=== PATIENT | male | born 1970 | race Caucasian/White ===

== ENCOUNTER 2016-03-03 18:29 | Emergency (ER) | payer OTHER ==
[2016-03-03 18:43] VITALS: BP 186/88
--- NOTE | 2016-03-03 18:58 | ERNOTE ---
Trauma/Assault HPI - Narrative Date of Service: 03/03/16 - General Stated Complaint: FALL Time Seen by Provider: 03/03/16 18:46 Source: patient, family Exam Limitations: no limitations - Immun/Allergies/Home Medications Immunizations: IMMUNIZATION HX Immunizations Up to Date Yes History of Influenza Vaccine More Information Required Hx Pneumococcal Vaccination More Information Required Allergies/Adverse Reactions: Allergies No Known Allergies Allergy (Verified 03/03/16 18:44) Home Medications: HOME MEDICATIONS Lisinopril [Zestril] 15 mg PO DAILY 03/11/15 [Last Taken Unknown] Metformin HCl [Glumetza] 1,000 mg PO BID 03/11/15 [Last Taken Unknown] Simvastatin [Zocor] 40 mg PO HS 03/11/15 [Last Taken Unknown] glipiZIDE [Glucotrol] 5 mg PO DAILY 03/11/15 [Last Taken Unknown] Aspirin [Aspirin EC] 81 mg PO DAILY 10/23/15 [Last Taken Unknown] - History of Present Illness Narrative: 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 About 45 minutes before coming by private vehicle to the [facility] emergency room, he was going down into his basement in order to turn the water back on. He slipped on Saturday steps landing on his left forearm and left ribs. There was no loss of consciousness. He has an abrasion on his left forearm and very tender left ribs with a red spot on his left lateral back over his ribs. He has no other painful or tender areas. He had a tetanus shot 2 years ago. Location Occurred: Reports: home Pain Location: Reports: chest, upper extremity Method of Injury: Reports: fall Severity: mild, moderate Modifying Factors - (Improves): Reports: rest Modifying Factors - (Worsens): Reports: jarring, movement Loss of Consciousness: Reports: no loss of consciousness Associated Symptoms - Trauma: Reports: denies symptoms Review of Systems - Review of Systems Constitutional: Present: no symptoms reported EYE: Present: no symptoms reported ENT: Present: no symptoms reported Respiratory: Present: no symptoms reported Cardiology: Present: no symptoms reported Gastrointestinal/Abdominal: Present: no symptoms reported Genitourinary: Present: no symptoms reported Musculoskeletal: Present: See HPI Skin: Present: See HPI Neurological: Present: no symptoms reported Endocrine: Present: no symptoms reported Hematologic/Lymphatic: Present: no symptoms reported Psych: Present: no symptoms reported All Other Systems: All systems neg except as marked - Patient's Past Medical History Patient History - Medical: Diabetes Type 2, Obesity Patient History - Cardiac/Respiratory: Hypertension, Hyperlipidemia Patient History - Cancer: No Hx of Cancer Patient History - Surgical Procedures: Other - Family History dad Family History - Medical: - Social History Living Situations: home Alcohol Use: rarely Drug Use: none Physical Exam - Physical Exam General Appearance: Present: wd/wn, alert, no apparent distress Eye Exam: Normal inspection: bilateral, PERRL: bilateral, EOMI: bilateral Ears, Nose, Throat: Present: normal ENT inspection, hearing grossly normal Neck: Present: normal inspection Respiratory: Present: no respiratory distress, lungs clear, chest tenderness - left posterolateral and lateral ribs, about mid thoracic spine. Cardiovascular/Chest: Present: regular rate, rhythm, no murmur Gastrointestinal/Abdominal: Present: normal bowel sounds, nontender, nondistended, soft, no organomegaly Back Exam: Present: no vertebral tenderness Extremity Exam: Present: other - superficial abrasion left proximal forearm Neurological Exam: Present: alert, oriented, normal mood/affect, no motor/ sensory deficits Skin Exam: Present: normal color, warm/dry ED Progress - Vital Signs Patient's Vital Signs:: I have reviewed the patient's vital signs. Vital Signs: Vital Signs 03/03/16 18:39 Temperature 36.2 C L Pulse Rate 94 Respiratory 14 Rate Blood Pressure 186/88 O2 Sat by Pulse 94 Oximetry - X-Ray X-Ray #1 X-Ray: ribs Interpretation: Interp. by me - no rib fractures - Progress/Reassessment Chief Complaint: Fall Departure Clinical Impression: Bruised ribs Qualifiers: Encounter type: initial encounter Laterality: left Qualified Code(s): S20.212A - Contusion of left front wall of thorax, initial encounter Abrasion forearm Qualifiers: Encounter type: initial encounter Laterality: left Qualified Code(s): S50.812A - Abrasion of left forearm, initial encounter - Departure Disposition: Home self-care Condition: Good Instructions: Rib Contusion, Abrasion, [id number], RICE for Routine Care of Injuries, [id number] Additional Instructions: Change the dressing on your arm once daily or as needed. See your doctor sometime next week. Use ibuprofen or tylenol for pain. Referrals: Bryon Pineda MD [Primary Care Provider] -
== END 2016-03-03 19:45 | disposition home or self-care (01) ==
LOC: ER 18:29
DX: S50.812A Abrasion of left forearm, initial encounter (principal); S20.212A Contusion of left front wall of thorax, initial encounter; W10.9XXA Fall (on) (from) unspecified stairs and steps, initial encounter; Y92.008 Other place in unspecified non-institutional (private) residence as the place of occurrence of the external cause

== ENCOUNTER 2018-06-21 20:00 | Observation (INO) ==
--- NOTE | 2018-06-21 20:18 | ERNOTE ---
<Shama Cota - Last Filed: 06/21/18 21:09> Headache ER HPI - Narrative Date of Service: 06/21/18 - General Presenting Symptoms: headache, other - chest tightness Time Seen by Provider: 06/21/18 20:17 Source: patient, family Exam Limitations: no limitations - Immun/Allergies/Home Medications Immunizations: IMMUNIZATION HX Immunizations Up to Date Yes History of Influenza Vaccine More Information Required Hx Pneumococcal Vaccination More Information Required Allergies/Adverse Reactions: Allergies No Known Allergies Allergy (Verified 03/03/16 18:44) Home Medications: HOME MEDICATIONS Lisinopril [Zestril] 15 mg PO DAILY 03/11/15 [Last Taken Unknown] Simvastatin [Zocor] 80 mg PO HS 03/11/15 [Last Taken Unknown] glipiZIDE [Glucotrol] 10 mg PO BID 03/11/15 [Last Taken Unknown] metFORMIN HCL [Glumetza] 1,000 mg PO BID 03/11/15 [Last Taken Unknown] Aspirin [Aspirin EC] 81 mg PO DAILY 10/23/15 [Last Taken Unknown] - Pain Pain Score: 1 - History of Present Illness Narrative: 48 yr old male with HTN, Diabetes mellitus and hyperlipidemia presents not feeling well in general since yesterday. Reports dull frontal headache, presently rates it 1/10. At its worse, it was 4/10. Reports mild dizziness when up walking. Had vague chest tightness this morning rated it a 3/10. Denies any C/P presently. States the C/P is intermittent. 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 Denies any associated N/V or diaphoresis. Denies any new SOB. States, "I am a big chirag. I am short of breath all of the time." thinks this has been worse the past week. Quit smoking 20 yrs ago. Arterial risk factors: Age, Diabetes mellitus, HTN, Hyperlipidemia and family history. Patient's father of [place] at age 52. Also has sister who has brain aneurysm. Date (Duration): 06/21/18 Time (Timing): 20:18 Activity at onset: other - just sitting at home Quality: Present: achy Severity Maximum: Present: moderate Severity-Currently: Present: mild Associated Symptoms: Reports: dizziness. Denies: nausea, vomiting, sweating Review of Systems - Review of Systems Constitutional: Absent: recent illness, fever, diaphoresis EYE: Present: no symptoms reported ENT: Present: no symptoms reported Respiratory: Present: shortness of breath - Denies any new SOB. States always SOB. . Absent: cough Cardiology: Present: chest pain, edema. Absent: palpitations Gastrointestinal/Abdominal: Absent: nausea, vomiting Genitourinary: Present: no symptoms reported Musculoskeletal: Present: no symptoms reported Skin: Present: no symptoms reported Neurological: Present: headache, dizziness/light-headedness Endocrine: Present: no symptoms reported Hematologic/Lymphatic: Present: no symptoms reported Psych: Present: no symptoms reported Medical History (Updated 06/21/18 @ 20:11 by Herlinda Jaimes) Diabetes HTN (hypertension) Hyperlipemia Surgical History: Surgical History (Updated 06/21/18 @ 20:11 by Herlinda Jaimes) Hx of hernia repair Family History: Family History (Updated 06/21/18 @ 20:12 by Herlinda Jaimes) Grandmother Diabetes Father Lung cancer Social History: Preferred Language Sri Lankan Smoking Status Former smoker Abuse History No History of abuse Psych History No pertinent hx Alcohol Use occasionally Drug Use none No Social History Section defined Physical Exam - Physical Exam General Appearance: Present: wd/wn, alert, no apparent distress, irritable Head Exam: Present: normal inspection, no evidence of injury Eye Exam: Normal inspection: bilateral, PERRL: bilateral, EOMI: bilateral Ears, Nose, Throat: Present: normal ENT inspection Neck: Present: other - Short, thick Respiratory: Present: no respiratory distress, normal breath sounds, no accessory muscle use, lungs clear Cardiovascular/Chest: Present: regular rate, rhythm, no murmur, normal peripheral pulses Gastrointestinal/Abdominal: Present: nontender, soft, other - Morbidly obese. Bowel sounds decreased throughout Back Exam: Present: normal inspection Extremity Exam: Present: non-tender, normal range of motion, extremity edema - Trace - 1+ ankle edema bilaterally Neurological Exam: Present: alert, oriented, no motor/sensory deficits, other - Irritable, agitated. Does not want IV started. "I hate needles. I am never coming to the hospital again". Skin Exam: Present: normal color, warm/dry, other - Multiple tattoos Progress - Results and Orders Patient's Lab Results:: I have reviewed the patient's lab results. - CBC - WBC 9.0, Hgb 14.5, Hct 49.1, Plt 323 - Vital Signs Patient's Vital Signs:: I have reviewed the patient's vital signs. Vital Signs: Vital Signs 06/21/18 20:06 Temperature 36.9 C Pulse Rate 100 Respiratory Rate 20 Blood Pressure 204/113 H O2 Sat by Pulse Oximetry 92 L - EKG EKG #1 EKG: no ST T wave changes, nonspecific ST T wave changes, other - Sinus tachycardia rate 102. No acute changes - Progress/Reassessment Chief Complaint: Headache Progress Note-Subjective: 06/21/18 20:48 Arterial risk factors: Age, Diabetes mellitus, HTN, Hyperlipidemia and family History. Patient's father of [place] at age 52. Also had lung and brain cancer at the time. Venous risk factors: Morbid obesity, sedentary life style 06/21/18 20:53 06/21/18 20:55 On arrival denies any current C/P. Currently denies any C/P, SOB, headache or dizziness. 06/21/18 21:10 Reviewed risk factors with patient. Diagnostic testing still pending at time of transfer of care to Dr. Alvarenga. Patient is agreeable to stay Observation for serial enzymes and EKG's. - Transfer of Care Physician Sign Out: Shama Cota Brief History: Chest tightness, SOB, Headache, dizziness Pain free at time of transfer of care. Receiving Physician: Nelson Syed Pending Results: Labs, X-ray results - Did not order CXR - waiting on D-dimer Expected Disposition: Admit Departure Clinical Impression: Chest pain Qualifiers: Chest pain type: unspecified Qualified Code(s): R07.9 - Chest pain, unspecified HTN (hypertension) Qualifiers: Hypertension type: essential hypertension Qualified Code(s): I10 - Essential (primary) hypertension Diabetes mellitus Qualifiers: Diabetes mellitus type: type 2 Diabetes mellitus chcf insulin use: without subway guard use Diabetes mellitus complication status: without complication Qualified Code(s): E11.9 - Type 2 diabetes mellitus without complications - Departure Disposition: Still a patient Condition: Good <Nelson Syed - Last Filed: 06/21/18 22:09> Headache ER HPI - Immun/Allergies/Home Medications Immunizations: IMMUNIZATION HX Immunizations Up to Date Yes History of Influenza Vaccine More Information Required Hx Pneumococcal Vaccination More Information Required Medical History (Updated 06/21/18 @ 21:17 by ANMOL Howard) Diabetes HTN (hypertension) Hyperlipemia Surgical History: Surgical History (Updated 06/21/18 @ 20:11 by Herlinda Jaimes) Hx of hernia repair Family History: Family History (Updated 06/21/18 @ 20:12 by Herlinda Jaimes) Grandmother Diabetes Father Lung cancer Social History: Preferred Language Sri [place]ank[place] Smoking Status Former smoker Abuse History No History of abuse Psych History No pertinent hx Alcohol Use occasionally Drug Use none No Social History Section defined Progress - Vital Signs Vital Signs: Vital Signs 06/21/18 20:06 06/21/18 20:28 06/21/18 20:33 Temperature 36.9 C Pulse Rate 100 97 91 Respiratory Rate 20 16 Blood Pressure 204/113 H 184/102 H 191/98 H O2 Sat by Pulse Oximetry 92 L 94 06/21/18 20:40 06/21/18 20:49 06/21/18 21:04 Temperature Pulse Rate 87 84 84 Respiratory Rate 15 20 Blood Pressure 191/95 H 191/95 H 179/99 H O2 Sat by Pulse Oximetry 94 93 Plan - Plan Plan: I assumed care of this patient at 9:20 PM from the outgoing physician certified pathology assistant. Briefly 48-year-old with high blood pressure, high cholesterol, diabetes with chest pain and a strange dizzy feeling throughout the day. EKG was nondiagnostic. First set of cardiac enzymes are normal. The patient is going to stay for an observation, to rule out for AMI. And waiting for the d-dimer and chest x-ray. I may end up ordering a CTA if d-dimer is positive. He will likely need a stress test but this could probably be done as an outpatient after knobs.
[2018-06-21] MEDS ORDERED: METOPROLOL TARTRATE 1 MG/ML AMPUL IV ONE (20:20)
[2018-06-21] MEDS ORDERED: ASPIRIN 81 MG TAB.CHEW PO ONE (20:22)
[2018-06-21 20:35] LABS: Hematocrit 49.1 % (42.0-52.0); Hemoglobin 14.5 gm/dL (13.5-18.0); Mean Cell Volume 79.3 fl (78-100); Mean Corpuscular Hemoglobin 23.4 pg (27-31); Mean Corpuscular Hgb Conc 29.5 g/dl (32-36); Mean Platelet Volume 9.7 fl (8-11.3); Neutrophil # 6.6 K/mm3 (1.3-6.0); Neutrophil % 72.7 % (42-75.0); Platelet Count 323 K/mm3 (150-450); Red Blood Count 6.19 M/mm3 (4.7-6.0); Red Cell Distribution Width 15.5 % (11.5-14.0)
[2018-06-21] MEDS ORDERED: CLONIDINE HCL 0.1 MG TABLET PO ONE (20:45)
[2018-06-21] MEDS ORDERED: LISINOPRIL 10 MG TABLET PO ONE (20:45)
[2018-06-21 20:57] LABS: ALT 27 U/L (19-67); AST 14 U/L (0-48); Albumin * 3.8 gm/dl (3.4-5.0); Alkaline Phosphatase * 107 U/L (50-170); Anion Gap 12.7 mmol/L (6.8-13.8); BNP * 179 pg/mL (5-140); BUN/Creatinine Ratio 15.8 (9.0-21.6); Bilirubin, Total 0.5 mg/dL (0.0-1.1); Blood Urea Nitrogen 15 mg/dL (6-23); Ca. Corrected For Albumin 9.4 mg/dL (8.4-10.2); Calcium * 9.6 mg/dL (7.9-10.9); Carbon Dioxide 30.3 mmol/L (24-32.6); Chloride 100 mmol/L (97-106); Glucose * 179 mg/dL (70-110); Sodium 139 mmol/L (132-142)
[2018-06-21 21:01] LABS: Troponin I Less than 0.017 ng/mL (0.00-0.10)
[2018-06-21 21:09] LABS: Hemoglobin A1C 7.9 % (4.00-6.0)
[2018-06-21 21:17] LABS: Chol/HDL Risk Ratio 4.4 mg/dL (3.3-5.0)
[2018-06-22] MEDS: METOPROLOL TARTRATE 50 MG TABLET PO SCH ×2 (00:13→09:57)
[2018-06-22] MEDS ORDERED: ASPIRIN 81 MG TABLET.DR PO SCH (09:45)
[2018-06-22] MEDS ORDERED: glipiZIDE 10 MG TABLET PO SCH (09:45)
[2018-06-22] MEDS ORDERED: LISINOPRIL 5 MG TABLET PO SCH (09:45)
--- NOTE | 2018-06-22 10:19 | HP ---
Chief Complaint - Chief Complaint Date of Service: 06/22/18 Time of Service: 09:59 Chief Complaint: I had a headache chest tightness and dizziness History of Present Illness: 48-year-old male with past medical history of morbid obesity, former smoker, type 2 diabetes, hypertension, hyperlipidemia, was seen in the ER for frontal headache accompanied by dizziness and chest tightness that started earlier in the day. 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 However the patient denied any chest pain or shortness of breath. He reports having these symptoms years ago but but no significant findings were reported. He was discovered to have significantly elevated blood pressure last week when he saw his PCP but his blood pressure medications were not adjusted. Since then his blood pressure has remained elevated and worsened by the time he got to the ER where he was discovered to be in hypertensive crisis with systolic blood pressure is over 200 and diastolic over 100. Patient was treated with antihypertensive in our ER which lowered the blood pressure although it still remained above the desired range. Patient also underwent serial troponins which were negative and had a EKG that demonstrated a normal sinus rhythm. However given the patient's risk factors and his clinical presentation decision to admit to observation to rule out [place] was taken. Patient was administered aspirin and was placed on telemetry for close monitoring. Medical History (Updated 06/21/18 @ 21:17 by ANMOL Howard) Diabetes HTN (hypertension) Hyperlipemia Surgical History: Surgical History (Updated 06/21/18 @ 20:11 by Herlinda Jaimes) Hx of hernia repair Family History: Family History (Updated 06/21/18 @ 20:12 by Herlinda Jaimes) Grandmother Diabetes Father Lung cancer Social History: Patient Lives/Resources With Spouse Utilized Occupation truck driver supervisor Preferred Language Maltese Do you have any buddhism or No cultural preference? Smoking Status Former smoker Have you smoked in the past 12 No months Abuse History No History of abuse Psych History No pertinent hx Alcohol Use occasionally Drug Use none No Social History Section defined Peds Patient Hx - Developmental: No Pertinent Hx Peds Patient Hx - Medical: No Pertinent Hx Peds Patient Hx - Cardiac/Respiratory: No Pertinent Hx Peds Patient Hx - Surgical: No Surgical History Patient History - Cancer: No Hx of Cancer Review Of Systems (GEN) - Review of Systems Generalized/Overall Review: Present: No Symptoms Reported EENTM: Present: No Symptoms Reported Respiratory: Present: No Symptoms Reported Cardiac: Present: Other - Chest tightness of 1 day duration Abdominal: Present: No Symptoms Reported Genitourinary: Present: No Symptoms Reported Musculoskeletal: Present: No Symptoms Reported Neurological: Present: Headache Skin: Present: No Symptoms Reported Endocrine: Present: No Symptoms Reported Immunizations: IMMUNIZATION HX Immunizations Up to Date Yes History of Influenza Vaccine More Information Required Hx Pneumococcal Vaccination More Information Required Allergies/Adverse Reactions: Allergies Allergy/AdvReac Type Severity Reaction Status Date / Time No Known Allergies Allergy Verified 06/21/18 22:27 Home Medications: HOME MEDICATIONS Lisinopril [Zestril] 15 mg PO DAILY 03/11/15 [Last Taken Unknown] Simvastatin [Zocor] 80 mg PO HS 03/11/15 [Last Taken Unknown] glipiZIDE [Glucotrol] 10 mg PO BID 03/11/15 [Last Taken Unknown] metFORMIN HCL [Glumetza] 1,000 mg PO BID 03/11/15 [Last Taken Unknown] Aspirin [Aspirin EC] 81 mg PO DAILY 10/23/15 [Last Taken Unknown] Exam - Exam Vital Signs: Vital Signs - Last Taken Temp 36.6 C 06/22/18 06:26 Pulse 76 06/22/18 07:38 Resp 18 06/22/18 06:26 BP 154/82 H 06/22/18 06:26 Pulse Ox 91 L 06/22/18 06:26 Constitutional: Present: Alert, Oriented x3, Cooperative, Well developed, No dis tress, Morbidly obese ENT Exam: Present: normal ENT inspection, hearing grossly normal, pharynx normal, TMs normal Eye Exam: bilateral eye: normal inspection, PERRL, EOMI Neck: Present: non-tender, full range of motion, supple, normal inspection, trachea midline Back Exam: Present: normal inspection, no CVA tenderness, no vertebral tenderness Breasts: Present: Exam deferred Respiratory: Present: chest non-tender, lungs clear, normal breath sounds, no respiratory distress, no accessory muscle use Cardiovascular/Chest: Present: normal peripheral pulses, regular rate, rhythm, no chest tenderness, no gallop, no JVD, no murmur, edema - Bilateral 1+ pedal edema Peripheral Pulses: carotid (R): 4+, carotid (L): 4+, femoral (R): 4+, femoral (L): 4+, dorsalis-pedis (R): 4+, dorsalis-pedis (L): 4+ Abdomen: Present: Normal bowel sounds, soft, nontender, nondistended, no rebound tenderness, no hepatospenomegaly, no masses, obese /Rectal: Present: Exam deferred Extremity: Present: normal range of motion, non-tender, normal inspection, no calf tenderness, pedal edema - Bilateral 1+ pedal edema Skin Exam: Present: normal color, warm/dry, no cyanosis Lymphatic: Present: no adenopathy Neurologic: Present: back seam stitcher II-XII nml as tested, normal cerebellar test, no motor/sensory deficits, alert, normal mood/affect, oriented x 3 Appearance: Present: appropriate appearance, appropriate insight, neat, no memory impairment Eye contact: Present: cooperative, good eye contact, normal speech Thoughts: Present: normal thought pattern, no apparent hallucination Diagnostic Studies: Abnormal Lab Results 06/21/18 06/21/18 06/21/18 Range/Units 20:30 20:30 20:30 RBC 6.19 H (4.7-6.0) M/mm3 MCH 23.4 L (27-31) pg MCHC 29.5 L (32-36) g/dl RDW 15.5 H (11.5-14.0) % Immature Gran # (Auto) 0.04 H (0.000-0.0310) K/mm3 Lymphocytes % 18.1 L (20-51) % Neutrophils # 6.6 H (1.3-6.0) K/mm3 Random Glucose 179 H (70-110) mg/dL Hemoglobin A1c 7.9 H (4.00-6.0) % B-Natriuretic Peptide 179 H (5-140) pg/mL Laboratory Results WBC 9.0 K/mm3 (4.0-10.5) 06/21/18 20:30 RBC 6.19 M/mm3 (4.7-6.0) H 06/21/18 20:30 Hgb 14.5 gm/dL (13.5-18.0) 06/21/18 20:30 Hct 49.1 % (42.0-52.0) 06/21/18 20:30 MCV 79.3 fl (78-100) 06/21/18 20:30 MCH 23.4 pg (27-31) L 06/21/18 20:30 MCHC 29.5 g/dl (32-36) L 06/21/18 20:30 RDW 15.5 % (11.5-14.0) H 06/21/18 20:30 Plt Count 323 K/mm3 (150-450) 06/21/18 20:30 MPV 9.7 fl (8-11.3) 06/21/18 20:30 Immature Gran % (Auto) 0.40 % (0.001-0.429) 06/21/18 20: Immature Gran # (Auto) 0.04 K/mm3 (0.000-0.0310) H 06/21/18 20:30 72.7 % (42-75.0) 06/21/18 20:30 18.1 % (20-51) L 06/21/18 20:30 7.1 % (0.0-9) 06/21/18 20:30 1.3 % (0.0-3.0) 06/21/18 20:30 0.4 % (0.0-1.0) 06/21/18 20: Nucleated RBC % 0.0 k/mm3 (0-1) 06/21/18 20:30 6.6 K/mm3 (1.3-6.0) H 06/21/18 20:30 1.64 k/mm3 (1.5-3.5) 06/21/18 20:30 0.6 k/mm3 (0.0-1.0) 06/21/18 20:30 0.1 k/mm3 (0.0-0.7) 06/21/18:30 Absolute Basophils 0.0 k/mm3 (0.0-0.1) 06/21/18 20:30 0.25 ug/mL (0.19-0.49) 06/21/18 20:30 Sodium 139 mmol/L (132-142) 06/21/18 20:30 140 mmol/L (130-142) 06/21/18 20:30 Potassium 4.0 mmol/L (3.4-4.6) 06/21/18 20:30 Chloride 100 mmol/L (97-106) 06/21/18 20:30 Carbon Dioxide 30.3 mmol/L (24-32.6) 06/21/18 20:30 12.7 mmol/L (6.8-13.8) 06/21/18 20:30 BUN 15 mg/dL (6-23) 06/21/18 20:30 0.95 mg/dL (0.4-1.4) 06/21/18 20:30 Est GFR (Non-Af Amer) 89 mL/min (60-130) 06/21/18 20:30 15.8 (9.0-21.6) 06/21/18 20:30 179 mg/dL (70-110) H 06/21/18 20:30 177 mg/dL 06/21/18 20:30 7.9 % (4.00-6.0) H 06/21/18 20:30 Calcium 9.6 mg/dL (7.9-10.9) 06/21/18 20:30 Calcium Adj for Albumin 9.4 mg/dL (8.4-10.2) 06/21/18 20:30 0.5 mg/dL (0.0-1.1) 06/21/18 20:30 AST 14 U/L (0-48) 06/21/18 20:30 ALT 27 U/L (19-67) 06/21/18 20:30 107 U/L (50-170) 06/21/18 20:30 Less than 0.017 ng/mL (0.00-0.10) 06/22/18 05:45 B-Natriuretic Peptide 179 pg/mL (5-140) H 06/21/18 20:30 8.0 gm/dL (6.2-8.2) 06/21/18 20:30 3.8 gm/dl (3.4-5.0) 06/21/18 20:30 Triglycerides 147 mg/dL (30-200) 06/21/18 20:30 Cholesterol 190 mg/dL (0-200) 06/21/18 20:30 118 mg/dL (70-130) 06/21/18 20:30 29 mg/dL (5-40) 06/21/18 20:30 43 mg/dL (40-60) 06/21/18 20:30 4.4 mg/dL (3.3-5.0) 06/21/18 20:30 Assessment/Plan - Narrative Narrative: Patient was admitted to observation for serial troponins and monitoring of recurrence of symptoms. He was administered aspirin and and hypertensive to control his BP. He was placed on telemetry for close monitoring. Will resume all of his routine meds. - Assessment/Plan (1) Ruled out for myocardial infarction Problem: Acute (2) Chest pain Problem: Acute Qualifiers: Chest pain type: unspecified Qualified Code(s): R07.9 - Chest pain, unspecified (3) Chest tightness or pressure Problem: Acute (4) Hypertensive emergency Problem: Acute (5) Morbid obesity due to excess calories Problem: Acute (6) Diabetes mellitus Problem: Acute Qualifiers: Diabetes mellitus type: type 2
--- NOTE | 2018-06-22 10:34 | DS ---
(1) Ruled out for myocardial infarction Problem: Ruled-out (2) Chest pain Problem: Resolved Qualifiers: Chest pain type: unspecified Qualified Code(s): R07.9 - Chest pain, unspecified (3) Chest tightness or pressure Problem: Resolved (4) Hypertensive emergency Problem: Resolved (5) Morbid obesity due to excess calories Problem: Chronic (6) Diabetes mellitus Problem: Chronic Qualifiers: Diabetes mellitus type: type 2 Description of Stay: 48-year-old male admitted for hypertensive emergency as well as chest discomfort and chest tightness was evaluated at bedside and was found to be afebrile and in no acute distress. Patient reports complete resolution of his symptoms, he says the chest tightness went away and denies any chest pain or shortness of breath. Patient also reports resolution of his frontal headache and dizziness. He was treated with antihypertensive and was started on metoprolol 50 mg twice daily, which she responded favorably to. Blood pressure has decreased towards normal levels but still remains mildly elevated. Therefore he was instructed to continue taking his routine meds and the new medication that he is prescribed. Lisinopril dose was increased and patient was instructed to monitor his blood pressure at home and to keep a BP log and to see his PCP within the next week. Clinically patient patient appears stable and is in a good mood. Therefore decision to discharge at home was taken. He will be provided a prescription for metoprolol. Procedures Performed: none Results and Findings: Lab Pending Results 06/21/18 20:30: WBC 9.0, RBC 6.19 H, Hgb 14.5, Hct 49.1, MCV 79.3, MCH 23.4 L, MCHC 29.5 L, RDW 15.5 H, Plt Count 323, MPV 9.7, Immature Gran % (Auto) 0.40, Immature Gran # (Auto) 0.04 H, Neutrophils % 72.7, Lymphocytes % 18.1 L, Monocytes % 7.1, Eosinophils % 1.3, Basophils % 0.4, Nucleated RBC % 0.0, Neutrophils # 6.6 H, Lymphocytes # 1.64, Monocytes # 0.6, Eosinophils # 0.1, Absolute Basophils 0.0 06/21/18 20:30: Sodium 139, Plasma Sodium 140, Potassium 4.0, Chloride 100, Carbon Dioxide 30.3, Anion Gap 12.7, BUN 15, Creatinine 0.95, Est GFR (Non-Af Amer) 89, BUN/Creatinine Ratio 15.8, Random Glucose 179 H, Calcium 9.6, Calcium Adj for Albumin 9.4, Total Bilirubin 0.5, AST 14, ALT 27, Alkaline Phosphatase 107, Troponin I Less than 0.017, B-Natriuretic Peptide 179 H, Total Protein 8.0, Albumin 3.8 06/21/18 20:30: D-Dimer 0.25 06/21/18 20:30: Triglycerides 147, Cholesterol 190, LDL Cholesterol 118, VLDL Cholesterol 29, HDL Cholesterol 43, Cholesterol/HDL Ratio 4.4 06/21/18 20:30: Mean Blood Glucose 177, Hemoglobin A1c 7.9 H 06/22/18 01:00: Troponin I Less than 0.017 06/22/18 05:45: Troponin I Less than 0.017 Discharge Location: Home Disposition: Home self-care Condition: Good Face to Face Encounter completed per [facility] Guidelines: No Discharge Activity: Activity as tolerated Discharge Diet: Consistent carbs, Low salt, Low fat/chol Referrals: Bryon Pineda MD [Primary Care Provider] - Prescriptions (Any new or edited meds): Metoprolol Tartrate [Lopressor] 50 mg PO BID 30 Days #60 tab Lisinopril [Zestril] 40 mg PO DAILY 30 Days #30 tab Complete Home Medications List: Complete Home Medication List: Simvastatin [Zocor] 80 mg PO HS 03/11/15 glipiZIDE [Glucotrol] 10 mg PO BID 03/11/15 metFORMIN HCL [Glumetza] 1,000 mg PO BID 03/11/15 Aspirin [Aspirin EC] 81 mg PO DAILY 10/23/15 Lisinopril [Zestril] 40 mg PO DAILY 30 Days #30 tab 06/22/18 Metoprolol Tartrate [Lopressor] 50 mg PO BID 30 Days #60 tab 06/22/18
[2018-06-22 11:39] VITALS: BP 151/80
[2018-06-22] MEDS ORDERED: SIMVASTATIN 40 MG TABLET PO SCH (21:00)
== END 2018-06-22 11:20 | disposition home or self-care (01) ==
LOC: MS 20:00 → ER 20:00 → MS 22:15
PROVIDERS: ADMIT Family Medicine; ATTEND Family Medicine
DX: E11.9 Type 2 diabetes mellitus without complications; I10 Essential (primary) hypertension; R07.9 Chest pain, unspecified; E66.01 Morbid (severe) obesity due to excess calories
CPT/HCPCS: 36415; 71020; 71046; 80053; 80061; 83036; 83519; 83880; 84484; 85025; 85379; 93005; 96374; 99285; G0378